=== PATIENT | female | born 1975 | race Caucasian/White ===

== ENCOUNTER 2019-03-15 20:21 | Emergency (ER) | payer OTHER ==
[~2019-03-15] VITALS: Ht 152.4 cm; Wt 45.4 kg
[2019-03-15 20:35] VITALS: BP 169/135
[2019-03-15 21:00] VITALS: BP 169/135
--- NOTE | 2019-03-15 21:22 | Emergency Room Report ---
History of Present Illness General Chief Complaint: Multiple Trauma/Fall Source: EMS Present Illness HPI 43-year-old female history of alcoholism presents with ground-level fall, unwitnessed, patient with altered mental status brought in by EMS, unable to answer questions appropriately currently intoxicated, uncooperative with exam. Allergies: Coded Allergies: No Known Allergies (Unverified , 03/15/19) Patient History Limited by: medical condition - History is limited secondary to acute alcohol intoxication Past Medical History: see triage record Social History: Reports: alcohol use Reviewed Nursing Documentation: PMH: Agreed; PSxH: Agreed Nursing Documentation-PMH Past Medical History: No Stated History Review of Systems All Other Systems: limited - Acute alcohol intoxication Physical Exam Vital Signs Date Time Temp Pulse Resp B/P (MAP) Pulse Ox O2 Delivery O2 Flow Rate FiO2 03/15/19 20:18 97.5 96 18 169/135 (146) 98 Room Air Sp02 EP Interpretation: reviewed, normal General Appearance: other - covered in blood, confused altered Head: other - left forehead laceration Eyes: bilateral eye PERRL, bilateral eye EOMI, bilateral eye other - raccoon eye left eye ENT: uvula midline, moist mucus membranes Neck: supple, thyroid normal, supple/symm/no masses Respiratory: lungs clear, no respiratory distress, no retraction, no accessory muscle use Cardiovascular #1: normal peripheral pulses, regular rate, rhythm, no edema, no gallop, no murmur Gastrointestinal: non tender, soft, no guarding, no rebound Musculoskeletal: normal inspection Neurologic: responsive, other - confused, GCs 13 Psychiatric: anxious Skin: no rash, warm/dry Medical Decision Making Diagnostic Impression: Primary Impression: Multiple injuries due to trauma Additional Impressions: Closed head injury Qualified Codes: S09.90XA - Unspecified injury of head, initial encounter Closed basilar skull fracture with contusion ER Course 43-year-old female presents with altered mental status GCS less than 15, concerning for basilar skull fracture. Spoke with [facility], spoke with Dr. Clark, who will consult on patient, he is a trauma surgeon Spoke with Dr. Means, he will accept patient in accordance to Trauma Triage Scheme Patient GCS < 15, AMS, closed head injury, concern for intracranial bleed/skull fracture Patient accepted by [facility], Rapid Triage Acceptance. Last Vital Signs Date Time Temp Pulse Resp B/P (MAP) Pulse Ox O2 Delivery O2 Flow Rate FiO2 03/15/19 20:35 97.5 18 169/135 98 Room Air 03/15/19 20:35 96 Disposition: XFER SHT-TRM HOSP Condition: Serious Referrals: NOT CHOSEN IPA/,REFERRING (PCP) Lefty Roman MD Mar 15, 2019 21:22
== END 2019-03-15 21:00 | disposition short-term general hospital (02) ==
LOC: EDBD 20:21 → EMR 20:29
DX: S09.90XA Unspecified injury of head, initial encounter (principal); S02.80XA Fracture of other specified skull and facial bones, unspecified side, initial encounter for closed fracture; W19.XXXA Unspecified fall, initial encounter; Y92.9 Unspecified place or not applicable; F10.129 Alcohol abuse with intoxication, unspecified
CPT/HCPCS: 99284